=== PATIENT | female | born 1975 ===

== ENCOUNTER 2020-02-14 07:00 | Day surgery (SDC) | payer OTHER ==
[2020-02-14] MEDS ORDERED: TENORMIN25 MG PO (14:10)
[2020-02-14] MEDS ORDERED: TAPAZOLE10 MG PO (14:10)
== END 2020-02-14 13:00 | disposition home or self-care (01) ==
LOC: CIR.AMB 07:00
PROVIDERS: ATTEND Obstetrics & Gynecology Obstetrics
DX: N85.01 Benign endometrial hyperplasia (principal)